=== PATIENT | female | born 1980 | race Caucasian/White ===

== ENCOUNTER 2020-02-25 11:57 | Emergency (ER) | payer OTHER, MEDICAID ==
[~2020-02-25] VITALS: Ht 157.5 cm; Wt 79.5 kg
[~2020-02-25 11:57] MED LIST: HYDROCODONE-APA1 TAB PO; PERCOCET 10/3251 TA1 PO; VIBRAMYCIN 100100 MG PO
[2020-02-25 12:00] VITALS: BP 148/84; Ht 157.5 cm; Wt 79.5 kg
[2020-02-25] MEDS ORDERED: HYDROCODON-ACE1 EAC7 PO (12:02)
[2020-02-25] MEDS ORDERED: CLEOCIN HCL300 MG PO (12:02)
[2020-02-25] MEDS ORDERED: ZANAFLEX4 MG PO (13:32)
[2020-02-25] MEDS ORDERED: MOBIC7.5 MG PO (13:32)
== END 2020-02-25 13:39 | disposition home or self-care (01) ==
LOC: D.ER 11:57
DX: S16.1XXA Strain of muscle, fascia and tendon at neck level, initial encounter (principal); S20.219A Contusion of unspecified front wall of thorax, initial encounter; S09.90XA Unspecified injury of head, initial encounter; S40.011A Contusion of right shoulder, initial encounter; R25.2 Cramp and spasm; V89.2XXA Person injured in unspecified motor-vehicle accident, traffic, initial encounter; Y93.9 Activity, unspecified; Y92.9 Unspecified place or not applicable